=== PATIENT | male | born 1985 | race Caucasian/White ===

== ENCOUNTER 2016-12-20 13:30 | Emergency (ER) | payer MEDICAID, OTHER ==
[~2016-12-20] VITALS: Wt 85.0 kg
[~2016-12-20 13:30] MED LIST: ALBU18HF INHALATION; ALBU2.5V3 NEB; ALBU8.5H3 INH; AMO500 PO; CETI10CA PO; CIPR500T4 PO; CODE118S PO; FLUT9.9S NASAL; GUAI118L94 PO; IBUP400T22 PO; NAPR-688 PO; PHEN-538 PO; PRED20TA PO; PRED50TA PO; PROM5SYR2 PO; PROM6.25 PO; UDROBDM PO
[2016-12-20] MEDS ORDERED: CLOT30CR18 TOP (16:01)
[2016-12-20] MEDS ORDERED: D-ME473S18 PO (16:01)
[2016-12-20] MEDS ORDERED: IBUP-1542 PO (16:02)
[2016-12-20 16:20] VITALS: BP 125/64; PULSE 69; RESP 19; TEMP 98.3
--- NOTE | 2016-12-20 17:33 | ERD ---
ER Documentation Chief Complaint Date/Time DATE: 12/20/16 TIME: 17:33 Chief Complaint BILAT FEET PAIN X1 YEAR, NO INJURY HPI This is a 31 y/o male that presents to the ER for bilateral feet pain for one year. Patient states that he is on his feet a lot and that he feels pain to the mid plantar foot. Pain is worse in the morning, whenever he gets up from bed. Pain radiates to the heel of his foot. He has tried over the counter medications however they have not helped. He is also c/o of bilateral feet peeling and itchiness. Patient denies any fever or chills. He denies any trauma to his feet. He denies any redness, swelling or ulcerations. He is additionally c/o of a dry cough over the last few days. He denies chest pain or shortness of breath. He denies cold symptoms, ear pain or throat pain. He denies hemoptysis. He has not traveled anywhere. ROS 12 point review of systems was done, all negative except per HPI. Medications Home Meds Active Scripts Ibuprofen* (Motrin*) 600 Mg Tab, 600 MG PO Q6, #30 TAB Prov:RADHA COSTA 12/20/16 Dextromethorphan Hb-Promethazine Hcl (Promethazine DM Syrup) 473 Ml Syrup, 10 ML PO Q6H Y for COUGH, #4 OZ Prov:RADHA COSTA 12/20/16 Clotrimazole* (Athletic Foot* Cream) 30 Gm Cream..g., 1 APPLIC TOP BID for 7 Days, TUB Prov:RADHA COSTA 12/20/16 Fluticasone Propionate (Flonase Allergy Relief) 9.9 Ml Worth.susp, 1 SPRAY NASAL BID, #1 BOTTLE TO EACH NOSTRIL Prov:HOA DIEGO DO 05/13/16 Albuterol Sulfate* (Ventolin HFA*) 18 Gm Hfa.aer.ad, 2 PUFF INHALATION Q4H, #1 INHALER Prov:HOA DIEGO DO 05/13/16 Prednisone (Prednisone) 20 Mg Tab, 40 MG PO DAILY, #4 TAB Prov:HOA DIEGO DO 05/13/16 Guaifenesin-Dextromethorphan* (Robitussin* DM) 100MG/10MG/5ML Syrup, 5 ML PO Q4H Y for COUGH, #20 ML Prov:HOA DIEGO DO 05/13/16 Naproxen* (Naproxen*) 500 Mg Tablet, 500 MG PO BID, #14 TAB Prov:HOA DIEGO DO 05/13/16 Amoxicillin* (Amoxicillin*) 500 Mg Cap, 500 MG PO TID for 10 Days, CAP Prov:HOA DIEGO DO 05/13/16 Promethazine HCl/Codeine (Prometh-Codein 6.25-10 mg/5 ml) 5 Ml Syrup, 5 ML PO Q6 for COUGH, #60 ML Prov:ARNAUD MARTINEZ NP 05/03/16 Ibuprofen* (Motrin*) 400 Mg Tab, 400 MG PO Q6H Y for PAIN AND OR ELEVATED TEMP, #30 TAB Prov:ARNAUD MARTINEZ NP 05/03/16 Cetirizine Hcl* (Zyrtec*) 10 Mg Capsule, 10 MG PO DAILY, #30 TAB.CHEW Prov:ARNAUD MARTINEZ NP 05/03/16 Prednisone* (Prednisone*) 50 Mg Tablet, 50 MG PO DAILY, #5 TAB Prov:ARNAUD MARTINEZ NP 05/03/16 Albuterol Sulfate* (Proair HFA*) 8.5 Gm Hfa.aer.ad, 2 PUFF INH Q4H Y for WHEEZING AND SOB, #1 INHALER Prov:ARNAUD MARTINEZ NP 05/03/16 Guaifenesin-Codeine Phosphate* (Guaifenesin* with Codeine Liq) 120 Ml Liquid, 5 ML PO QHS Y for COUGH, #120 ML Prov:LINA MACIAS NP 12/01/15 Albuterol Sulfate* (Ventolin HFA*) 18 Gm Hfa.aer.ad, 2 PUFF INHALATION Q6H Y for COUGH, #1 INHALER Prov:LINA MACIAS NP 12/01/15 Promethazine w/Codeine (Phenergan w/Codeine Syrup) 5 Ml Syrup, 10 ML PO Q6 Y for COUGH, #120 ML Prov:LIA AIKEN NP 10/09/15 Prednisone* (Prednisone*) 20 Mg Tab, 40 MG PO DAILY for 4 Days, TAB Prov:NELLILIA Pascual PITTS 10/09/15 Promethazine w/Codeine* (Phenergan w/Codeine* Syrup) 5 Ml Syrup, 10 ML PO Q4H Y for COUGH for 4 Days, ML Prov:VIGNESH ROBLES NP 10/05/15 Albuterol Sulfate* (Proair HFA*) 8.5 Gm Hfa.aer.ad, 2 PUFF INH Q4, #1 INHALER Prov:VIGNESH ROBLES NP 10/05/15 Phenazopyridine Hcl* (Pyridium*) 200 Mg Tab, 200 MG PO TID Y for DYSURIA, #6 TAB Prov:ARNAUD MARTINEZ NP 03/17/15 Ciprofloxacin Hcl* (Ciprofloxacin Hcl*) 500 Mg Tablet, 500 MG PO BID for 10 Days , TAB Prov:ARNAUD MARTINEZ NP 03/17/15 Guaifenesin-Codeine Phosphate* (Guaifenesin* with Codeine Liq) 120 Ml Liquid, 5 ML PO Q4H for COUGH, #30 ML Prov:ARNAUD MARTINEZ NP 03/17/15 Reported Medications Albuterol Sulfate* (Albuterol Sulfate* Neb) 0.083%-3 Ml Neb, 2.5 MG NEB Q3H Y for WHEEZING AND SOB, EA 04/10/14 Allergies Allergies: Coded Allergies: No Known Allergy (Unverified , 11/30/15) PMhx/Soc History of Surgery: Yes (Back Surgery) Anesthesia Reaction: No Hx Neurological Disorder: No Hx Respiratory Disorders: Yes (ASTHMA, BRONCHITIS) Hx Cardiac Disorders: No Hx Psychiatric Problems: No Hx Miscellaneous Medical Probl: No Hx Alcohol Use: No Hx Substance Use: No Hx Tobacco Use: No Smoking Status: Never smoker Physical Exam Vitals Physical Exam Const: [] Head: Atraumatic Eyes: Normal Conjunctiva ENT: Normal External Ears, Nose and Mouth.normal TM's. no tonsillar erythema or exudates Resp: Clear to auscultation bilaterally, no rales, no rhonchi, no wheezes Cardio: Regular rate and rhythm, no murmurs Ext: Bilateral feet are peeling. Patient has full ROM of both feet however he has plantar fascia pain with dorsiflexion of bilateral feet. Patient has full ROM of bilateral ankles. He is not ttp to the lateral or medial malleolus bilaterally. No pain at the base of the 5th metatarsal bilaterally. +2 pulses. normal capillary refill. No erythema, edema or swelling of the feet. Neur: Awake and alert Psych: Normal Mood and Affect Procedures/MDM This is a 31 y.o male that presents to the ER with bilateral feet pain. This is likely plantar fasciitis. Suspicion for infection or trauma is low. Patient does not have a history of any injuries and there is no signs of infection. He is afebrile and well appearing. Patient has had this pain for a year now, likely acute on chronic pain. Imaging is not indicated at this time since his physical exam findings are benign and consistent with plantar fasciitis. In regards to patients skin peeling this could be a fungal infection. I showed patient some exercises to stretch out his soleus muscle and advised patient to use an iced water bottle in the morning to stretch his foot out. He will be sent home with pain medications, clotrimazole and promethazine for his cough which is likely a URI. Suspicion for pneumonia is low. Patient needs to f/u with his PCP within 1-2 days and consider requesting an authorization to see an orthopedic doctor if pain continues. He should return to ER if symptoms worsen. My medical decision making was shared with the patient, he understands and agrees with plan. Departure Diagnosis: Primary Impression: Foot pain Additional Impression: Cough Condition: Stable Patient Instructions: What Is Plantar Fasciitis? Additional Instructions: Call your primary care doctor TOMORROW for an appointment during the next 1-2 days.See the doctor sooner or return here if your condition worsens before your appointment time. RADHA COSTA Dec 20, 2016 17:33
== END 2016-12-20 16:21 | disposition home or self-care (01) ==
LOC: FTE 13:30
DX: M79.671 Pain in right foot (principal); M79.672 Pain in left foot; R05 Cough; J45.909 Unspecified asthma, uncomplicated
CPT/HCPCS: 99283